=== PATIENT | male | born 1975 | race Caucasian/White ===

== ENCOUNTER → 2021-03-28 | Outpatient (CLI) | payer SELFPAY | END | disposition home or self-care (01) | LOC: LAB SHORT 19:01 | DX: R31.9 Hematuria, unspecified (principal) | CPT/HCPCS: 87086 ==

== ENCOUNTER → 2021-05-02 | Outpatient (CLI) | payer BC | END | disposition home or self-care (01) | LOC: LAB SHORT 13:00 | DX: R31.9 Hematuria, unspecified (principal) | CPT/HCPCS: 87086 ==

== ENCOUNTER 2021-10-18 18:59 | Inpatient (IN) | payer BC ==
[~2021-10-18] VITALS: Ht 188 cm; Wt 175.6 kg
[2021-10-18 19:59] LABS: BASOPHILS ABSOLUTE AUTO 0.06 K/mm3 (0.00-0.23); BASOPHILS PERCENT AUTO 1 % (0-2); EOSINOPHILS ABSOLUTE AUTO 0.23 K/mm3 (0.00-0.68); EOSINOPHILS PERCENT AUTO 2 % (0-6); Hematocrit 46.7 % (37.0-53.0); IMMATURE GRAN ABSOLUTE AUTO 0.04 K/mm3 (0.00-0.10); IMMATURE GRAN PERCENT AUTO 0 % (0-1); LYMPHOCYTES PERCENT AUTO 23 % (21-46); MONOCYTES ABSOLUTE AUTO 0.66 K/mm3 (0.16-1.47); MONOCYTES PERCENT AUTO 6 % (4-13); Mean Corpuscular HGB 26.2 pg (26.0-34.0); Mean Corpuscular HGB Conc 32.1 g/dL (31.5-36.5); Mean Corpuscular Volume 82 fL (80-100); Mean Platelet Volume 9.8 fL (9.1-12.4); NEUTROPHILS ABSOLUTE AUTO 7.93 K/mm3 (1.96-9.15); NEUTROPHILS PERCENT AUTO 68 % (41-73); Platelet Count 216 K/mm3 (150-400); RDW Coefficient Variation 14.1 % (11.7-14.2); Red Blood Cell Count 5.73 M/mm3 (4.30-5.90); White Blood Cell Count 11.62 K/mm3 (4.00-11.30)
[2021-10-18 20:18] LABS: Alanine Aminotransfer (ALT/SGP 23 U/L (12-78); Albumin, Blood 3.7 g/dL (3.4-5.0); Alk Phos 73 U/L (50-136); Anion Gap 7 mmol/L (6-16); Aspartate Aminotrans (AST/SGOT 18 U/L (12-37); Bilirubin, Total 0.4 mg/dL (0.1-1.0); Blood Urea Nitrogen 12 mg/dL (8-24); Bun/Creatinine Ratio 14.9 (12.0-20.0); CO2, Blood 28 mmol/L (21-32); Calcium, Blood 9.2 mg/dL (8.5-10.1); Chloride, Blood 105 mmol/L (98-108); Creatinine, Blood 0.81 mg/dL (0.60-1.20); Globulin, Blood 3.7 g/dL (2.2-4.0); Glomerular Filtration Rate 109 (60-); Glucose, Blood 111 mg/dL (70-99); Potassium, Blood 3.7 mmol/L (3.5-5.5); Sodium, Blood 140 mmol/L (136-145); Total Protein, Blood 7.4 g/dL (6.4-8.2)
[2021-10-18 20:58] LABS: Anti-Xa UFH, PHA Monitoring <0.10 IU/mL; International Normalized Ratio 1.06; Prothrombin Time Results 11.1 Sec (9.7-11.5)
[2021-10-18 22:42] LABS: CHOL/HDL RATIO 6.5; Cholesterol 168 mg/dL (50-200); HDL Cholesterol 26 mg/dL (>39); LDL/HDL RATIO 3.2; Low Density Lipoprotein Chol 83 mg/dL (0-110); Triglycerides 297 mg/dL (30-160); Very Low Density Lipoprot Chol 59 mg/dL (6-32)
[2021-10-19] MEDS ORDERED: Crestor40 MG (00:50)
[2021-10-19] MEDS ORDERED: CLOP75 PO (00:51)
[2021-10-19] MEDS ORDERED: CARV6.25 PO (00:52)
[2021-10-19] MEDS ORDERED: METF500 PO (00:53)
[2021-10-19] MEDS ORDERED: RAMI5 PO (00:55)
[2021-10-19] MEDS ORDERED: Aldactone50 MG PO (00:56)
[2021-10-19] MEDS ORDERED: ALBU90OI INH ×2 (01:00)
[2021-10-19] MEDS ORDERED: NAPR500 PO (01:00)
[2021-10-19] MEDS ORDERED: DEPO-TESTO200 MG/1 M IM (01:02)
[2021-10-19] MEDS ORDERED: FURO40 PO (01:04)
[2021-10-19] MEDS ORDERED: Aspir 8181 MG PO (01:04)
[2021-10-19] MEDS ORDERED: MAGNESIUM OXID500 MG PO (01:05)
[2021-10-19 03:53] LABS: BASOPHILS ABSOLUTE AUTO 0.07 K/mm3 (0.00-0.23); BASOPHILS PERCENT AUTO 1 % (0-2); EOSINOPHILS ABSOLUTE AUTO 0.27 K/mm3 (0.00-0.68); EOSINOPHILS PERCENT AUTO 3 % (0-6); Hematocrit 44.2 % (37.0-53.0); Hemoglobin 14.3 g/dL (13.5-17.5); IMMATURE GRAN ABSOLUTE AUTO 0.03 K/mm3 (0.00-0.10); IMMATURE GRAN PERCENT AUTO 0 % (0-1); LYMPHOCYTES ABSOLUTE AUTO 3.59 K/mm3 (0.84-5.20); LYMPHOCYTES PERCENT AUTO 38 % (21-46); MONOCYTES ABSOLUTE AUTO 0.55 K/mm3 (0.16-1.47); MONOCYTES PERCENT AUTO 6 % (4-13); Mean Corpuscular HGB 26.3 pg (26.0-34.0); Mean Corpuscular HGB Conc 32.4 g/dL (31.5-36.5); Mean Corpuscular Volume 81 fL (80-100); Mean Platelet Volume 9.8 fL (9.1-12.4); NEUTROPHILS ABSOLUTE AUTO 4.97 K/mm3 (1.96-9.15); NEUTROPHILS PERCENT AUTO 53 % (41-73); Platelet Count 197 K/mm3 (150-400); RDW Coefficient Variation 14.2 % (11.7-14.2); RDW Standard Deviation 41.4 fL (35.1-46.3); Red Blood Cell Count 5.43 M/mm3 (4.30-5.90); White Blood Cell Count 9.48 K/mm3 (4.00-11.30)
[2021-10-19 04:16] LABS: Albumin, Blood 3.4 g/dL (3.4-5.0); Bilirubin, Total 0.7 mg/dL (0.1-1.0); Bun/Creatinine Ratio 17.2 (12.0-20.0); Calcium, Blood 8.8 mg/dL (8.5-10.1); Creatinine, Blood 0.76 mg/dL (0.60-1.20); Globulin, Blood 3.4 g/dL (2.2-4.0); Potassium, Blood 3.5 mmol/L (3.5-5.5); Total Protein, Blood 6.8 g/dL (6.4-8.2)
--- NOTE | 2021-10-19 06:23 | NUR ---
SHIFT SUMMARY ER ADMIT, ARRIVED AT 0025. . PT ALERT AND ORIENTED X4. AFEBRILE. BP STABLE. ON RA SATS OVER 95%. HR SB/SR 40-60'S. HEP GTT INFUSING. INDEPENDENT FOR ADLS. NPO SINCE MIDNIGHT. C/O / OR LESS CP. IN BED SLEEPING WITH CALL ALARM AT SIDE, WILL CONTINUE TO MONITOR UNTIL REPORT GIVEN TO DAYSHIFT RN.
--- NOTE | 2021-10-19 08:53 | NUR ---
ASSUMPTION OF CARE NOTE PT ALERT AND ORIENTED X 4. HE DENIED FEELINGS OF CHEST PAIN/PRESSURE. PASTING INSPECTOR IN PT ROOM NOW. PLAN FOR POSSIBLE ANGIO TODAY PER REPORT. PT IS NPO STATUS. HEPARIN DRIP INFUSING IN RIGHT AC PER EMAR ORDERES, VERIFIED WITH JEWELS GALEANA THIS AM. WILL CONTINUE TO MONITOR.
[2021-10-19 14:11] LABS: SARS-Cov-2 (COVID-19) PCR, MMC NEGATIVE (NEGATIVE)
--- NOTE | 2021-10-19 14:20 | NUR ---
CARE NOTE PT LEFT PCU FOR CLASSROOM TEACHER AT 1420, PHARMACY NOTIFIED OF HEPARIN DRIP BEING DISCONNECTED.
--- NOTE | 2021-10-19 17:44 | NUR ---
SHIFT SUMMARY PT HAS BEEN ALERT AND ORIENTED X 4. HE ARRIVED TO PCU FROM SOLAR DEVELOPMENT ENGINEER AT APPROX. 1630. VITAL SIGNS HAVE BEEN STABLE, SPO2 95% VIA ROOM AIR. HE HAS DENIED CHEST PAIN OR PRESSURE. HAS BEEN AT BEDSIDE SINCE ARRIVAL TO PCU. PT HAS BEEN ABLE TO AMBULATE TO BATHROOM TO VOID. PT HAS RIGHT RADIAL ACCESS SITE THAT HAS TR BAND IN PLACE, 13ML OF AIR IN TR BAND. SITE DOES NOT HAVE ANY ACTIVE BLEEDING, DRIED BLOOD AROUND WRIST AREA BUT NO ACTIVE BLEEDING DURING ASSESSMENTS. ARM BOARD ALSO IN PLACE AND PT ADVISED TO NOT USE RIGHT ARM/HAND. PT NOW EATING DINNER AND HAS GOOD PO INTAKE. WILL CONTINUE TO MONITOR.
--- NOTE | 2021-10-19 18:34 | NUR ---
TR BAND NOTE 2ML REMOVED AT 1830, NO SIGNS OF BLEEDING, 11ML OF AIR REMAINS.
[2021-10-20 05:16] LABS: Bun/Creatinine Ratio 18.8 (12.0-20.0); Calcium, Blood 8.8 mg/dL (8.5-10.1); Creatinine, Blood 0.8 mg/dL (0.60-1.20); Potassium, Blood 3.7 mmol/L (3.5-5.5)
--- NOTE | 2021-10-20 05:21 | NUR ---
SHIFT SUMMARY PT ALERT AND ORIENTED X4. TR BAND REMOVED @ 2130. R RADIAL SITE C/D/I. BP STABLE. AFEBRILE. HR SB/SR 50-70'S. ON RA SATS OVER 94%. ON BIPAP WHILE ASLEEP. PAIN INITIALLY ON R RADIAL SITE, RELIEVED PER EMAR. ASLEEP MOST OF NIGHT. IN BED RESTING WITH CALL ALARM AT SIDE, WILL CONTINUE TO MONITOR UNTIL REPORT GIVEN TO WANDA GALEANA.
--- NOTE | 2021-10-20 10:28 | NUR ---
CARE ASSUMPTION THIS RN ASSUMED CARE FROM JEWELS GALEANA AT 0700. VSS. TELE SR 68. PATIENT NEURO IS INTACT. ALERT AND OREINTED X4. PERRLA. PATIENT REPORTS NUMBNESS AND TINGLING TO EXTREMITIES, BUT STATES THAT IS BASELINE. PATIENT REPORTS NO CHEST PAIN/PRESSURE. STRONG RADIAL AND PEDIS PULSES. CAP REFILL <3SECONDS. EDEMA MINIMAL IN LOWER EXTREMITIES. R RADIAL SITE IS CLEAN DRY AND INTACT. PATIENT REPORTS NO PAIN. PATIENT REPORTS NO SHORTNESS OF BREATH, CLEAR LUNG SOUNDS, AND USES BIPAP AT NIGHT AND HAS HOME ONE IN ROOM. PATIENT ABD IS NONTENDER AND ACTIVE. PATIENT HAD BLISTER ON LEFT HEEL IN COMING INTO HOSPITAL AND BANDAGE IN PLACE, OTHERWISE SKIN IS CLEAN DRY AND INTACT. SEE SHIFT ASSESSMENT FOR FURTHER DETAILS. PATIENT IS INDEPDENT IN ROOM AND CALLS IF NEEDING ASSSITANCE. MD SCHMITT AND SANDY IN TO SEE PATIENT THIS AM AND WENT OVER PLAN OF CARE, AND THAT IF LINOLEUM TILE FLOOR LAYER SIGNS OFF PATIENT CAN BE DISCHARGED HOME TODAY. LINOLEUM TILE FLOOR LAYER IN TO SEE PATIENT AND SAID PATIENT CAN GO HOME TODAY. AWAITING DISCHARGE ORDERS. CALL LIGHT IS WITHIN REACH. WILL CONTINUE TO MONITOR AND PROVIDE CARE.
[2021-10-20] MEDS ORDERED: LISI20 PO (11:53)
[2021-10-20] MEDS ORDERED: Lipitor80 MG PO (11:54)
[2021-10-20] MEDS ORDERED: TICA90TA PO (11:55)
--- NOTE | 2021-10-20 13:10 | NUR ---
DISCHARGE EDUCATION THIS RN WENT OVER DISCHARGE EDUCATION WITH THE PATIENT. THIS RN WENT OVER NEW MEDICATIONS THE PATIENT WOULD BE TAKING, LIPITOR, BRILINTA, AND ZESTRIL. THIS RN EDUCATED THE RATIONALE FOR EACH MEDICATION AND PROVIDED PRINTED HAND OUT INSTRUCTIONS. THIS RN WENT OVER RADAIL SITE CARE AND PROVIDED PRINT OUT INSTRUCTIONS. THIS RN WENT OVER THE IMPORTANCE OF FOLLOWING UP WITH PRIMARY CARE PROVIDER AND MACHINE WOODWORKING SANDER. PATIENT VERABLIZED UNDERSTANDING. THIS RN REMOVED THE PATIENT IV AND CATHETER TIP WAS INTACT FOR BOTH IVS REMOVED. PATIENT MEDICATIONS CALLED TO [facility] AND PATIENT IS GOING TO [facility] TODAY. PATIENT IS AWAITING FOR HIS RIDE. PATIENT NEURO REMAINS INTACT. VSS. PATIENT IS NOT IN ANY DISTRESS.
--- NOTE | 2021-10-20 13:27 | NUR ---
DISCHARGE PATIENT LEFT WALKING OUT WITH JUNIE Soto CNA TO THE PATIENTS CAR. ALL BELONGINGS WITH PATIENT AND DISCHARGE EDUCATION.
== END 2021-10-20 13:15 | disposition home or self-care (01) | DRG 247 ==
LOC: ER 18:59 → PCU 21:52
PROVIDERS: Emergency Medicine; Family Medicine; Internal Medicine Interventional Cardiology; Student in an Organized Health Care Education/Training Program; ADMIT Internal Medicine
PROC: 027034Z Dilation of Coronary Artery, One Artery with Drug-eluting Intraluminal Device, Percutaneous Approach (ICD-10-PCS; principal; 2021-10-19)
PROC: 4A023N7 Measurement of Cardiac Sampling and Pressure, Left Heart, Percutaneous Approach (ICD-10-PCS; 2021-10-19)
PROC: B2111ZZ Fluoroscopy of Multiple Coronary Arteries using Low Osmolar Contrast (ICD-10-PCS; 2021-10-19)
PROC: B240ZZ3 Ultrasonography of Single Coronary Artery, Intravascular (ICD-10-PCS; 2021-10-19)
DX: I21.4 Non-ST elevation (NSTEMI) myocardial infarction (principal); I50.30 Unspecified diastolic (congestive) heart failure; Z68.42 Body mass index [BMI] 45.0-49.9, adult; Z20.822 Contact with and (suspected) exposure to COVID-19; I11.0 Hypertensive heart disease with heart failure; E66.01 Morbid (severe) obesity due to excess calories; E78.5 Hyperlipidemia, unspecified; G47.33 Obstructive sleep apnea (adult) (pediatric); R73.03 Prediabetes; Z79.82 Long term (current) use of aspirin; Z79.02 Long term (current) use of antithrombotics/antiplatelets; Z79.84 Long term (current) use of oral hypoglycemic drugs; Z79.899 Other long term (current) drug therapy
CPT/HCPCS: 36415; 71045; 76937; 80048; 80053; 80061; 83036; 84443; 84484; 85025; 85347; 85520; 85610; 92978; 93005; 93010; 93308; 93321; 93458; 94660; 94762; 96365; 96366; 99152; 99153; 99285-25; A9270; C1725; C1753; C1769; C1874; C1887; C1894; C9600; J1644; J2250; J3010; J3246; J7030; J7040; Q9967; U0004

== ENCOUNTER 2023-08-15 13:30 | Emergency (ER) | payer BC ==
[~2023-08-15] VITALS: Ht 188 cm; Wt 167.8 kg
[~2023-08-15 13:30] MED LIST: ALBU90OI INH; Aldactone50 MG PO; Aspir 8181 MG PO; CARV6.25 PO; CLOP75 PO; Crestor40 MG; DEPO-TESTO200 MG/1 M IM; FURO40 PO; LISI20 PO; Lipitor80 MG PO; MAGNESIUM OXID500 MG PO; METF500 PO; NAPR500 PO; RAMI5 PO; TICA90TA PO
[2023-08-15] MEDS ORDERED: VITAMIN D5000 UNIT PO (13:53)
[2023-08-15] MEDS ORDERED: EZET10 PO (13:54)
[2023-08-15] MEDS ORDERED: Avapro300 MG PO (13:55)
[2023-08-15 13:56] LABS: BASOPHILS ABSOLUTE AUTO 0.05 K/mm3 (0.00-0.23); BASOPHILS PERCENT AUTO 1 % (0-2); EOSINOPHILS ABSOLUTE AUTO 0.21 K/mm3 (0.00-0.68); EOSINOPHILS PERCENT AUTO 2 % (0-6); Hematocrit 49.6 % (37.0-53.0); Hemoglobin 16.3 g/dL (13.5-17.5); IMMATURE GRAN ABSOLUTE AUTO 0.04 K/mm3 (0.00-0.10); IMMATURE GRAN PERCENT AUTO 0 % (0-1); LYMPHOCYTES ABSOLUTE AUTO 2.47 K/mm3 (0.84-5.20); LYMPHOCYTES PERCENT AUTO 24 % (21-46); MONOCYTES ABSOLUTE AUTO 0.67 K/mm3 (0.16-1.47); MONOCYTES PERCENT AUTO 6 % (4-13); Mean Corpuscular HGB 26.5 pg (26.0-34.0); Mean Corpuscular HGB Conc 32.9 g/dL (31.5-36.5); Mean Corpuscular Volume 81 fL (80-100); Mean Platelet Volume 9.7 fL (9.1-12.4); NEUTROPHILS ABSOLUTE AUTO 6.95 K/mm3 (1.96-9.15); NEUTROPHILS PERCENT AUTO 67 % (41-73); Platelet Count 199 K/mm3 (150-400); RDW Coefficient Variation 14.4 % (11.7-14.2); RDW Standard Deviation 41.2 fL (35.1-46.3); Red Blood Cell Count 6.16 M/mm3 (4.30-5.90); White Blood Cell Count 10.39 K/mm3 (4.00-11.30)
[2023-08-15] MEDS ORDERED: MONT10T (13:56)
[2023-08-15] MEDS ORDERED: MECL25 PO (13:56)
[2023-08-15 14:20] LABS: Albumin, Blood 3.7 g/dL (3.4-5.0); Albumin/Globulin Ratio 1.1 (0.8-1.8); Bilirubin, Total 0.6 mg/dL (0.1-1.0); Bun/Creatinine Ratio 14.6 (12.0-20.0); Creatinine, Blood 0.96 mg/dL (0.60-1.20); Globulin, Blood 3.4 g/dL (2.2-4.0); Total Protein, Blood 7.1 g/dL (6.4-8.2)
[2023-08-15 16:00] VITALS: BP 130/82
== END 2023-08-15 16:58 | disposition home or self-care (01) ==
LOC: ER 13:30
PROVIDERS: Emergency Medicine
DX: R07.9 Chest pain, unspecified (principal); Z79.899 Other long term (current) drug therapy; Z79.82 Long term (current) use of aspirin
CPT/HCPCS: 71045; 80053; 83690; 84484; 85025; 99285-25

== ENCOUNTER → 2024-03-10 | Outpatient (CLI) | payer BC ==
[~2024-03-10] MED LIST changes: +Avapro300 MG PO; +EZET10 PO; +MECL25 PO; +MONT10T; +VITAMIN D5000 UNIT PO
== END | disposition home or self-care (01) ==
LOC: LAB 08:45 → LAB SHORT 08:45
DX: E29.1 Testicular hypofunction (principal)
CPT/HCPCS: 84403